=== PATIENT | female | born 1995 | race American Indian/Alaskan Native ===

== ENCOUNTER 2020-03-23 21:29 | Emergency (ER) | payer SELFPAY ==
[2020-03-23 21:39] VITALS: BP 143/90
--- NOTE | 2020-03-23 22:48 | XRay Report ---
LEFT FOOT 3 VIEW(S) INDICATION / CLINICAL INFORMATION: MAIN COMPARISON: None available. FINDINGS: BONES / JOINT(S): No acute fracture or subluxation. No significant arthritis. SOFT TISSUES: Generalized soft tissue swelling around the ankle. ADDITIONAL FINDINGS: None. Signer Name: Abram Quintero MD Signed: 03/23/2020 10:44 PM Workstation Name: [id number]
--- NOTE | 2020-03-23 22:48 | XRay Report ---
LEFT ANKLE 3 VIEW(S) INDICATION / CLINICAL INFORMATION: MAIN COMPARISON: None available. FINDINGS: BONES / JOINT(S): No acute fracture or subluxation. Mild cortical irregularity of the distal tibia an d fibula likely represents remote trauma. The ankle mortise is intact. No significant arthrosis. SOFT TISSUES: Generalized soft tissue swelling and edema around the ankle. ADDITIONAL FINDINGS: None. Signer Name: Abram Quintero MD Signed: 03/23/2020 10:43 PM Workstation Name: [id number]
--- NOTE | 2020-03-23 23:34 | Emergency Department Report ---
ED Lower Extremity HPI - General Chief Complaint: Extremity Injury, Lower Stated Complaint: FALL/ANKLE AND TOE PAIN Time Seen by Provider: 03/23/20 21:45 Source: patient Mode of arrival: Ambulatory Limitations: No Limitations - History of Present Illness Initial Comments: 24-year-old obese -Citizen Of [place] female with emerge department complaining of left foot and ankle pain after stepping in a hole with losing her balance causing her to twist and popping-like sensation was resulting in pain and swelling since the onset. Pain is worse with palpation and range of motion and weightbearing. -: days(s) (1) Injury: Ankle: Left, Foot: Left Type of Injury: inversion Place: home Severity: mild, moderate Improves With: nothing Worsens With: weight bearing, movement, palpation Associated Symptoms: snap/pop sensation, swelling, able to partially bear weight - Related Data Previous Rx's Medication Instructions Recorded Last Taken Type Ketorolac [Toradol] 10 mg PO Q6H PRN #14 tablet 03/23/20 Unknown Rx Allergies Allergy/AdvReac Type Severity Reaction Status Date / Time alec AdvReac Unknown Verified 03/23/20 21:39 ED Review of Systems ROS: Stated complaint: FALL/ANKLE AND TOE PAIN Other details as noted in HPI Comment: All other systems reviewed and negative ED Past Medical Hx - Past Medical History Previous Medical History?: Yes Hx Asthma: Yes - Social History Smoking Status: Never Smoker Substance Use Type: None - Medications Home Medications: Home Medications Medication Instructions Recorded Confirmed Last Taken Type Ketorolac [Toradol] 10 mg PO Q6H PRN #14 tablet 03/23/20 Unknown Rx ED Physical Exam - General Limitations: No Limitations General appearance: alert, in no apparent distress - Head Head exam: Present: atraumatic, normocephalic - Eye Eye exam: Present: normal appearance, PERRL, EOMI Pupils: Present: normal accommodation - ENT ENT exam: Present: normal exam, mucous membranes moist, TM's normal bilaterally - Neck Neck exam: Present: normal inspection, full ROM - Respiratory Respiratory exam: Present: normal lung sounds bilaterally. Absent: respiratory distress, wheezes, rales, chest wall tenderness, accessory muscle use - Cardiovascular Cardiovascular Exam: Present: regular rate, normal rhythm. Absent: systolic murmur, diastolic murmur, rubs, gallop - GI/Abdominal GI/Abdominal exam: Present: soft, normal bowel sounds. Absent: distended, tenderness, guarding, hyperactive bowel sounds, hypoactive bowel sounds, organomegaly, mass - Extremities Exam Extremities exam: Present: normal inspection, normal capillary refill. Absent: tenderness - Back Exam Back exam: Present: normal inspection. Absent: CVA tenderness (R), CVA tenderness (L) - Neurological Exam Neurological exam: Present: alert, oriented X3, CN II-XII intact, normal gait - Psychiatric Psychiatric exam: Present: normal affect, normal mood. Absent: flat affect, manic - Skin Skin exam: Present: warm, dry, intact, normal color. Absent: rash, diaphoretic, erythema, urticaria, pallor, abrasion, ecchymosis ED Course Vital Signs 03/23/20 21:36 Temperature 98 F Pulse Rate 89 Respiratory 20 Rate Blood Pressure 143/90 O2 Sat by Pulse 99 Oximetry ED Lower Extremity MDM - Radiology Data Radiology results: report reviewed (No acute findings) - Medical Decision Making Placed in a Velcro stirrup splint advised on rice therapy advised to follow-up with orthopedic physician for definitive treatment Critical care attestation.: If time is entered above; I have spent that time in minutes in the direct care of this critically ill patient, excluding procedure time. ED Disposition Clinical Impression: Ankle sprain Disposition: - TO HOME OR SELFCARE Is pt being admited?: No Does the pt Need Aspirin: No Condition: Stable Instructions: How to Use a Stirrup Ankle Brace, [id number], Elastic Bandage and RICE Therapy, How to Use Cold Therapy, [id number], Ankle Sprain, Phase II Rehab-SportsMed, How to Use a Stirrup Ankle Brace Prescriptions: Ketorolac [Toradol] 10 mg PO Q6H PRN #14 tablet PRN Reason: Pain Referrals: PATY NORIEGA MD [Staff Physician] - 3-5 Days
== END 2020-03-24 01:09 | disposition home or self-care (01) ==
LOC: ED 21:29
DX: S93.402A Sprain of unspecified ligament of left ankle, initial encounter (principal); J45.909 Unspecified asthma, uncomplicated; Z79.899 Other long term (current) drug therapy; Z91.018 Allergy to other foods; X50.1XXA Overexertion from prolonged static or awkward postures, initial encounter; Y93.89 Activity, other specified; Y92.89 Other specified places as the place of occurrence of the external cause; Y99.8 Other external cause status
CPT/HCPCS: 99283